=== PATIENT | female | born 1970 | race Caucasian/White ===

== ENCOUNTER 2018-11-11 15:26 | Observation (INO) | payer OTHER ==
[~2018-11-11] VITALS: Ht 157.5 cm; Wt 92.5 kg
--- NOTE | 2018-11-11 15:43 | ER Report ---
History and Physical Time Seen By MD: 15:39 HPI/ROS CHIEF COMPLAINT: RLQ pain HISTORY OF PRESENT ILLNESS: 48 year old female with history of kidney stones presents with severe RLQ pain that started 6 hours ago. Endorses SOB, N and V with the pain. The pain radiates from RLQ to suprapubically. Has tried treating with Tylenol this AM which helped a little but now pain is worse. 9/10 on pain scale. Symptoms are similar to when she had kidney stones in the past. REVIEW OF SYSTEMS: General: no fever, loss of appetite Respiratory: No cough, no dyspnea, SOB Cardiovascular: No chest pain, no palpitations. Gastrointestinal: vomiting, abdominal pain, suprapubic pain, no flank pain Musculoskeletal: No back pain. Allergies: Coded Allergies: doxycycline (Verified Allergy, Intermediate, HIVES, DIARRHEA, 11/11/18) Home Meds No Active Prescriptions or Reported Meds Past Medical/Surgical History Kidney stones, D&C age 18 Reviewed Nurses Notes: Yes Constitutional Vital Sign - Last 24 Hours 11/11/18 11/11/18 11/11/18 11/11/18 15:37 15:41 15:56 16:00 Temp 98.4 Pulse 80 80 81 Resp 16 B/P (MAP) 189/106 181/104 (129) Pulse Ox 92 92 94 11/11/18 11/11/18 11/11/18 11/11/18 16:11 16:26 16:30 17:00 Pulse 82 82 B/P (MAP) 178/109 (132) 178/108 (131) Pulse Ox 92 89 11/11/18 11/11/18 11/11/18 11/11/18 17:11 17:16 17:31 19:01 Pulse 82 83 89 89 Pulse Ox 92 94 93 92 11/11/18 11/11/18 11/11/18 11/11/18 19:06 19:21 19:28 19:36 Pulse 81 84 76 Pulse Ox 88 85 94 O2 Flow Rate 2.5 11/11/18 11/11/18 19:51 20:06 Pulse 86 79 Pulse Ox 94 94 Physical Exam General Appearance: The patient is alert, has no immediate need for airway protection and no current signs of toxicity. no acute distress Eyes: Pupils equal and round no injection. Respiratory: Chest is non tender, lungs are clear to auscultation. Cardiac: regular rate and rhythm Gastrointestinal: Abdomen is soft, RLQ tenderness, positive rebound tenderness on right with palpation of LLQ, no masses, bowel sounds normal. Neck: Neck is supple and non tender. Extremities have full range of motion and are non tender. Skin: No rashes or lesions. DIFFERENTIAL DIAGNOSIS: After history and physical exam differential diagnosis was considered for Kidney stone, UTI, Pyelonephritis, Appendicitis, ovarian cyst Medical Decision Making Data Points Result Diagram: 11/11/18 1539 11/11/18 1539 Laboratory Hematology Test 11/11/18 15:39 White Blood Count 12.0 k/uL (4.5-11.0) H Red Blood Count 4.99 M/uL (4.17-5.56) Hemoglobin 15.1 g/dL (12.0-16.0) Hematocrit 45.0 % (34.0-47.0) Mean Corpuscular Volume 90.3 fL (80.0-96.0) Mean Corpuscular Hemoglobin 30.2 pg (26.0-33.0) Mean Corpuscular Hemoglobin Concent 33.4 g/dL (32.0-36.0) Red Cell Distribution Width 13.7 % (11.5-14.5) Platelet Count 338 K/uL (150-450) Mean Platelet Volume 7.4 fL (7.2-11.1) Neutrophils (%) (Auto) 89.5 % (39.4-72.5) H Lymphocytes (%) (Auto) 6.2 % (17.6-49.6) L Monocytes (%) (Auto) 3.7 % (4.1-12.4) L Eosinophils (%) (Auto) 0.2 % (0.4-6.7) L Basophils (%) (Auto) 0.4 % (0.3-1.4) Nucleated RBC Relative Count (auto) 0.0 /100WBC Neutrophils # (Auto) 10.8 K/uL (2.0-7.4) H Lymphocytes # (Auto) 0.8 K/uL (1.3-3.6) L Monocytes # (Auto) 0.4 K/uL (0.3-1.0) Eosinophils # (Auto) 0.0 K/uL (0.0-0.5) Basophils # (Auto) 0.0 K/uL (0.0-0.1) Nucleated RBC Absolute Count (auto) 0.00 K/uL Erythrocyte Sedimentation Rate 30 mm/HOUR (0-20) H Chemistry Test 11/11/18 15:39 Sodium Level 138 mmol/L (137-145) Potassium Level 3.9 mmol/L (3.5-5.0) Chloride Level 103 mmol/L (98-107) Carbon Dioxide Level 24 mmol/L (22-31) Blood Urea Nitrogen 14 mg/dl (7-18) Creatinine 0.90 mg/dl (0.52-1.04) Glomerular Filtration Rate Calc > 60.0 Random Glucose 127 mg/dl (75-110) Calcium Level 9.3 mg/dl (8.4-10.2) Total Bilirubin 0.5 mg/dl (0.2-1.3) Aspartate Amino Transf (AST/SGOT) 21 U/L (0-35) Alanine Aminotransferase (ALT/SGPT) 33 U/L (0-56) Alkaline Phosphatase 88 U/L (0-126) C-Reactive Protein 0.9 mg/dl (<1.0) Total Protein 8.2 g/dl (6.3-8.2) Albumin 4.4 g/dl (3.5-5.0) Urinalysis Test 11/11/18 13:28 Urine Color Yellow Urine Clarity Slightly-cloudy Urine pH 5.0 pH (4.8-9.5) Urine Specific Beryl 1.024 Urine Protein Negative mg/dL (NEGATIVE) Urine Glucose (UA) Negative mg/dL (NEGATIVE) Urine Ketones Trace mg/dL (NEGATIVE) Urine Blood Moderate (NEGATIVE) Urine Nitrite Negative (NEGATIVE) Urine Bilirubin Negative (NEGATIVE) Urine Urobilinogen Negative mg/dL (0.2-1.9) Urine Leukocyte Esterase Negative (NEGATIVE) Urine RBC 4 /HPF (0-2/HPF) Urine WBC 1 /HPF (0-5/HPF) Urine Squamous Epithelial Cells Many /LPF (</=FEW) Urine Bacteria Few /HPF (NONE-FEW) Urine Mucus Few /HPF (NONE-FEW) EKG/Imaging Imaging TRANSVAGINAL NON-OB HISTORY: dialated tubular structure on CT scan. EXAMINATION: Transabdominal and transvaginal pelvic ultrasound with duplex Doppler evaluation. COMPARISON: CT scan from same day FINDINGS: Uterus: 9.3 x 4.7 x 6.8 cm mass Myometrium: negative Endometrium: 10.4 mm. Homogenous attenuation. No abnormal fluid or mass lesion Cervix: negative Ovaries: Left ovary was not definitively seen. There are multiple cystic structures in the left adnexa having a total size of 7.2 x 3.6 x 5.5 cm. Is correlated with the CT scan that demonstrated multiple septated left adnexa approximately 4 separate cysts the largest measuring approximately 5 cm. Right adnexa demonstrates a complex mass measuring 10.2 x 7.0 x 9.4 cm with elements of calcification and fat corresponding to the CT scan examination of the previously described dermoid. Contiguous to this dermoid is a tubular appearing structure measuring over 9 cm in length and up to 3 cm in width. Blood flow is documented in each ovary by duplex Doppler ultrasound. Adnexa: negative Free pelvic fluid: none IMPRESSION: 1. Right adnexal mass similar in size and appearance to the CT described mass consistent with a dermoid. 2. Tubular structure paralleling the right adnexal dermoid anteriorly likely representing hydrosalpinx. 3. Cyst laden left ovary with multiple cysts largest measuring approximately 5 cm. This correlates with the CT scan. Report Dictated By: Sterling Sampson MD at 11/11/2018 8:42 PM Report E-Signed By: Sterling Sampson MD at 11/11/2018 9:04 PM ADDENDUM #1 ADDENDUM: Also in the impression: Left adrenal gland nodule. ACR recommendations for incidental adrenal nodule with benign features (homogeneous, low density, smooth margins)without definite CT/MRI features of adenoma or other benign lesion: Adrenal nodule 1-4 cm: -Prior imaging available = Obtain prior CT or MRI and issue addendum. If stable for greater than 1 year indicates a benign nodule. If enlarging, recommend biopsy or resection. -No prior imaging and no history of malignancy = Obtain follow up non-contrast CT (adrenal mass protocol) in 1 year. In stable, presume benign. -History of malignancy = Non contrast MRI or non-contrast CT (adrenal mass protocol). If greater than 10 HU, proceed to CT without and with contrast (adrenal washout CT). If still not an adenoma proceed to biopsy. Adrenal nodule >4 cm -No history of malignancy: Consider resection -History of malignancy: PET/CT or biopsy Report Dictated By: Royce Palafox at 11/11/2018 5:57 PM Report E-Signed By: Royce Palafox at 11/11/2018 5:[address] abdomen and pelvis with IV contrast Indication: Right lower abdominal pain. Comparison: None available. . Technique: Axial CT images were obtained through the abdomen and pelvis during injection of nonionic iodinated intravenous contrast. Reformatted coronal and sagittal images were also obtained. One of the following dose optimization techniques was utilized in the performance of this exam: Automated exposure control; adjustment of the mA and/or kV according to the patient's size; or use of an iterative reconstruction technique. Specific details can be referenced in the facility's radiology CT exam operational policy. Contrast: 75 ml of Isovue-370 IV contrast. Findings: Lower lung munoz: Limited views lower lung field are unremarkable. Liver: No focal parenchymal abnormality of the liver. Biliary: Gallbladder appears unremarkable as well as the intra and extra hepatic biliary system. Pancreas: Normal appearance. Spleen: Normal appearance. Adrenal glands: Left adrenal gland does show a 2.1 x 1.9 cm hypodense nodule with Hounsfield of 63. Right adrenal gland is normal. Kidneys / retroperitoneum: No evidence of nephrolithiasis or hydronephrosis. No focal abnormality. Bowel / peritoneum / mesenteries: Colon shows no focal abnormality. The appendix is not definitely visualized. Right lower quadrant does show mild inflammatory changes. Small bowel shows no focal abnormality or obstruction. Stomach shows a small hiatal hernia and otherwise unremarkable. No free air, free fluid, fluid collections or other areas of inflammation. Small moderate umbilical hernia present containing fat. Lymph node assessment: No pathologic adenopathy identified. Pelvic structures: The right adnexal/ovary does show a 9.9 x 7.1 x 9.0 cm fat-containing lesion with some mild soft tissue calcification consistent with a dermoid. The region just anterior to the dermoid does show a dilated serpiginous tubular type structure measuring 9.0 x 3.0 x 6.0 cm. No appreciable inflammatory changes are present. However this does extend mildly to the right lower quadrant where there is mild inflammatory changes. The left ovary does show cysts with largest measuring 4.8 x 4.9 x 4.7 cm. The remaining pelvic structures visualized within normal limits. Vessels: No significant atherosclerotic calcifications seen throughout a nonaneurysmal abdominal aorta and branches. Musculoskeletal / Body wall: No acute or aggressive osseous abnormality. Mild degenerative changes of spine. IMPRESSION 1. There is mild inflammatory changes in right lower quadrant. The appendix is not definitely visualized. However near this area is a serpiginous tubular dilated structure measuring least 9 cm. Unsure if this is due to a signi ficantly dilated appendix versus a tubo-ovarian process such as hydrosalpinx or early tubo-ovarian abscess. 2. Right dermoid measuring 9.9 cm. 3. Left ovarian cysts with largest measuring 4.9 cm. 4. Other chronic findings as above. I called report to ESTEFANIA COHEN at 11/11/2018 5:47 PM. Report Dictated By: Royce Palafox at 11/11/2018 5:32 PM Report E-Signed By: Royce Palafox at 11/11/2018 5:49 PM ED Course/Re-evaluation ED Course Patient was admitted and examined, history and physical were obtained. Differential diagnoses were considered. On examination lungs are clear, heart regular, abdomen was soft and tender. Patient had generalized peritonitis with pain being worse in the right lower quadrant. An IV started, CBC, CMP, urinalysis were obtained. CT scan of abdomen and pelvis was done. It did show a large tubular mass in the lower pelvis. They're unsure if it was associated with the appendix, or with the reproductive organs. A transvaginal ultrasound was done. It did show multiple masses in that region. It appears to be associated with the reproductive organs. I discussed the case with Dr. Garner, NUM[employer]ICAL CONTR[employer] OPERATOR, who came down and evaluated the patient. She did agree to admit the patient with diagnosis of pelvic pain and pelvic mass. She will watch her overnight, with hopes will be able to get her pain under control so that she can follow-up with gynecology oncology in [place] where she is from. Patient verbalized understanding and agreement. Decision to Disposition Date: Nov 11, 2018 Decision to Disposition Time: 22:18 Depart Departure Latest Vital Signs Vital Signs Date Time Temp Pulse Resp B/P (MAP) Pulse Ox O2 Delivery O2 Flow Rate FiO2 11/11/18 20:06 79 94 11/11/18 19:28 2.5 11/11/18 17:00 178/108 (131) 11/11/18 15:37 98.4 16 Impression: Primary Impression: Pelvic pain Additional Impression: Pelvic mass Condition: Condition Unchanged Disposition: Admitted from ER New Scripts No Active Prescriptions or Reported Meds Problem Qualifiers ESTEFANIA COHEN Nov 11, 2018 15:43
[2018-11-11] MEDS ORDERED: NS(*) 0.9% 1000 ML BAG 1,000 ML IV ONE (15:58)
[2018-11-11] MEDS ORDERED: KETOROLAC 30 MG/ML VIAL IVP ONE ×2 (16:00→22:05)
[2018-11-11] MEDS ORDERED: ONDANSETRON 4 MG/2 ML VIAL IVP ONE (16:05)
[2018-11-11] MEDS ORDERED: IOPAMIDOL 76% 100 ML INFUS BTL 100 ML ONE ×2 (16:15→16:57)
[2018-11-11 16:25] LABS: PLATELET COUNT, AUTOMATED 338 K/uL (150-450)
[2018-11-11] MEDS ORDERED: ACETAMINOPHEN(*)1000 MG/100 ML 100 ML IVPB ONE (17:05)
--- NOTE | 2018-11-11 17:56 | RADIOLOGY IMAGING REPORT ---
FACILITY: [facility] - [place] PATIENT NAME: Zonia Mclain : 1970 MR: [id number] V: [id number] EXAM DATE: ORDERING PHYSICIAN: ESTEFANIA COHEN TECHNOLOGIST: Location: [facility] - [place] Patient: Zonia Mclain : 1970 Visit/Account:[id number] Date of Sevice: 11/11/2018 ADDENDUM #1 ADDENDUM: Also in the impression: Left adrenal gland nodule. ACR recommendations for incidental adrenal nodule with benign features (homogeneous, low density, smooth margins)without definite CT/MRI features of ad enoma or other benign lesion: Adrenal nodule 1-4 cm: -Prior imaging available = Obtain prior CT or MRI and issue addendum. If stable for greater than 1 ye ar indicates a benign nodule. If enlarging, recommend biopsy or resection. -No prior imaging and no history of malignancy = Obtain follow up non-contrast CT (adrenal mass yulia col) in 1 year. In stable, presume benign. -History of malignancy = Non contrast MRI or non-contrast CT (adrenal mass protocol). If greater than 10 HU, proceed to CT without and with contrast (adrenal washout CT). If still not an adenoma proceed to biopsy. Adrenal nodule >4 cm -No history of malignancy: Consider resection -History of malignancy: PET/CT or biopsy Report Dictated By: Royce Palafox at 11/11/2018 5:57 PM Report E-Signed By: Royce Palafox at 11/11/2018 5:[address] abdomen and pelvis with IV contrast Indication: Right lower abdominal pain. Comparison: None available. . Technique: Axial CT images were obtained through the abdomen and pelvis during injection of nonioni c iodinated intravenous contrast. Reformatted coronal and sagittal images were also obtained. One of the following dose optimization techniques was utilized in the performance of this exam: Autom ated exposure control; adjustment of the mA and/or kV according to the patient's size; or use of an i terative reconstruction technique. Specific details can be referenced in the facility's radiology C T exam operational policy. Contrast: 75 ml of Isovue-370 IV contrast. Findings: Lower lung munoz: Limited views lower lung field are unremarkable. Liver: No focal parenchymal abnormality of the liver. Biliary: Gallbladder appears unremarkable as well as the intra and extra hepatic biliary system. Pancreas: Normal appearance. Spleen: Normal appearance. Adrenal glands: Left adrenal gland does show a 2.1 x 1.9 cm hypodense nodule with Hounsfield of 63. R ight adrenal gland is normal. Kidneys / retroperitoneum: No evidence of nephrolithiasis or hydronephrosis. No focal abnormality. Bowel / peritoneum / mesenteries: Colon shows no focal abnormality. The appendix is not definitely vi sualized. Right lower quadrant does show mild inflammatory changes. Small bowel shows no focal abnorm ality or obstruction. Stomach shows a small hiatal hernia and otherwise unremarkable. No free air, free fluid, fluid collections or other areas of inflammation. Small moderate umbilical h ernia present containing fat. Lymph node assessment: No pathologic adenopathy identified. Pelvic structures: The right adnexal/ovary does show a 9.9 x 7.1 x 9.0 cm fat-containing lesion wi th some mild soft tissue calcification consistent with a dermoid. The region just anterior to the roly moid does show a dilated serpiginous tubular type structure measuring 9.0 x 3.0 x 6.0 cm. No apprecia ble inflammatory changes are present. However this does extend mildly to the right lower quadrant whe re there is mild inflammatory changes. The left ovary does show cysts with largest measuring 4.8 x 4. 9 x 4.7 cm. The remaining pelvic structures visualized within normal limits. Vessels: No significant atherosclerotic calcifications seen throughout a nonaneurysmal abdominal aort a and branches. Musculoskeletal / Body wall: No acute or aggressive osseous abnormality. Mild degenerative changes of spine. IMPRESSION 1. There is mild inflammatory changes in right lower quadrant. The appendix is not definit ioana visualized. However near this area is a serpiginous tubular dilated structure measuring least 9 c m. Unsure if this is due to a significantly dilated appendix versus a tubo-ovarian process such as hy drosalpinx or early tubo-ovarian abscess. 2. Right dermoid measuring 9.9 cm. 3. Left ovarian cysts with largest measuring 4.9 cm. 4. Other chronic findings as above. I called report to ESTEFANIA COHEN at 11/11/2018 5:47 PM. Report Dictated By: Royce Palafox at 11/11/2018 5:32 PM Report E-Signed By: Royce Palafox at 11/11/2018 5:49 PM WSN:[id number]
[2018-11-11] MEDS ORDERED: MORPHINE 4 MG/ML SDV IVP ONE (18:05)
--- NOTE | 2018-11-11 21:12 | RADIOLOGY IMAGING REPORT ---
FACILITY: [facility] - [place] PATIENT NAME: Zonia Mclain : 1970 MR: [id number] V: [id number] EXAM DATE: ORDERING PHYSICIAN: ESTEFANIA COHEN TECHNOLOGIST: Location: [facility] - [place] Patient: Zonia Mclain : 1970 Visit/Account:[id number] Date of Sevice: 11/11/2018 TRANSVAGINAL NON-OB HISTORY: dialated tubular structure on CT scan. EXAMINATION: Transabdominal and transvaginal pelvic ultrasound with duplex Doppler evaluation. COMPARISON: CT scan from same day FINDINGS: Uterus: 9.3 x 4.7 x 6.8 cm mass Myometrium: negative Endometrium: 10.4 mm. Homogenous attenuation. No abnormal fluid or mass lesion Cervix: negative Ovaries: Left ovary was not definitively seen. There are multiple cystic structures in the left adnex a having a total size of 7.2 x 3.6 x 5.5 cm. Is correlated with the CT scan that demonstrated multipl e septated left adnexa approximately 4 separate cysts the largest measuring approximately 5 cm. Right adnexa demonstrates a complex mass measuring 10.2 x 7.0 x 9.4 cm with elements of calcification and fat corresponding to the CT scan examination of the previously described dermoid. Contiguous to this dermoid is a tubular appearing structure measuring over 9 cm in length and up to 3 cm in width. Blood flow is documented in each ovary by duplex Doppler ultrasound. Adnexa: negative Free pelvic fluid: none IMPRESSION: 1. Right adnexal mass similar in size and appearance to the CT described mass consistent with a dermo id. 2. Tubular structure paralleling the right adnexal dermoid anteriorly likely representing hydrosalpin x. 3. Cyst laden left ovary with multiple cysts largest measuring approximately 5 cm. This correlates wi th the CT scan. Report Dictated By: Sterling Sampson MD at 11/11/2018 8:42 PM Report E-Signed By: Sterling Sampson MD at 11/11/2018 9:04 PM WSN:[id number]
--- NOTE | 2018-11-11 22:41 | History & Physical ---
History of Present Illness Chief Complaint Right pelvic pain, nausea and vomiting History of Present Illness 48-year-old presented to the emergency department with acute onset RLQ pain, nausea and vomiting. The pain started this morning as a constant sharp pain. It was then coming with waves of increasing severity. She then developed severe enough pain that she was having some nausea and vomiting. She is not having any vaginal bleeding. She initially presented because she assumed it was kidney stones. She had this same pain two years ago and was diagnosed with kidney stones in [place]. She denies any family history of cancer but admits she does not know much about her family. 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 She is in the ED bed with her dog. She is very concerned as she is adamant she needs to be back on the road by tomorrow morning. She does not have any family except one cousin in [place] that would be able to help her. History Obstetrical History: POB Hx: G1: Full term >30 years ago G2: SAB with D&C PGYN Hx: She had her last normal menses in 04/2018. She then had 8 hours of bleeding 2 months ago. Past Medical History: PMH: None PSH: D&C, right pinky laceration repair Allergies: Coded Allergies: doxycycline (Verified Allergy, Intermediate, HIVES, DIARRHEA, 11/11/18) Social History: She smokes 1/2 ppd (restarted 2 months ago after quiting for one year). She quit ETOH in 1997. She denies any illicit or pharmaceutical drugs. Med Rec Home Meds No Active Prescriptions or Reported Meds Review of Systems Constitutional: Chills; No Fever Neurological: No Syncope Eyes: No Vision Change Cardiovascular: No Chest Pain, No Palpitations Respiratory: Shortness of Breath; No Cough, No Wheezing Gastrointestinal: Nausea, Vomiting, Diarrhea Musculoskeletal: No Pain Psychiatric: No Depression, No Anxiety Exam General Exam Vital Signs Vital Signs Date Time Temp Pulse Resp B/P (MAP) Pulse Ox O2 Delivery O2 Flow Rate FiO2 11/11/18 20:06 79 94 11/11/18 19:28 2.5 11/11/18 17:00 178/108 (131) 11/11/18 15:37 98.4 16 General Apperance: Alert/Awake/No Acute Distress, Other (Appears obese) Neuro: No Gross deficits Eyes: Normal Extraocular Movement & Vison Cardiovascular: Regular Rate and Rhythm Respiratory: No Respiratory Distress, Clear to Auscultation Abdomen: Other (Round, tenderness throughout but worse in RLQ, she has very minimal rebound, no guarding; she is pushing on her RLQ during the discussion to make it feel better) Extremities: No Cyanosis,Clubbing or Edema Integumentary: Skin Intact without Lesions or Rash Psychological: Alert & Oriented X3, Appropriate Mood & Affect Medical Decision Making Data Points Result Diagram: 11/11/18 1539 11/11/18 1539 Imaging Ultrasound/Imaging PATIENT NAME: Zonia Mclain : 1970 MR: [id number] V: [id number] EXAM DATE: ORDERING PHYSICIAN: ESTEFANIA COHEN TECHNOLOGIST: Location: [facility] [place] Patient: Zonia Mclain : 1970 Visit/Account:[id number] Date of Sevice: 11/11/2018 TRANSVAGINAL NON-OB HISTORY: dialated tubular structure on CT scan. EXAMINATION: Transabdominal and transvaginal pelvic ultrasound with duplex Doppler evaluation. COMPARISON: CT scan from same day FINDINGS: Uterus: 9.3 x 4.7 x 6.8 cm mass Myometrium: negative Endometrium: 10.4 mm. Homogenous attenuation. No abnormal fluid or mass lesion Cervix: negative Ovaries: Left ovary was not definitively seen. There are multiple cystic structures in the left adnexa having a total size of 7.2 x 3.6 x 5.5 cm. Is correlated with the CT scan that demonstrated multiple septated left adnexa approximately 4 separate cysts the largest measuring approximately 5 cm. Right adnexa demonstrates a complex mass measuring 10.2 x 7.0 x 9.4 cm with elements of calcification and fat corresponding to the CT scan examination of the previously described dermoid. Contiguous to this dermoid is a tubular appearing structure measuring over 9 cm in length and up to 3 cm in width. Blood flow is documented in each ovary by duplex Doppler ultrasound. Adnexa: negative Free pelvic fluid: none IMPRESSION: 1. Right adnexal mass similar in size and appearance to the CT described mass consistent with a dermoid. 2. Tubular structure paralleling the right adnexal dermoid anteriorly likely representing hydrosalpinx. 3. Cyst laden left ovary with multiple cysts largest measuring approximately 5 cm. This correlates with the CT scan. Report Dictated By: Sterling Sampson MD at 11/11/2018 8:42 PM Report E-Signed By: Sterling Sampson MD at 11/11/2018 9:04 PM Assessment and Plan Problems: (1) Pelvic pain Status: Acute Assessment & Plan: 48-year-old presented to the emergency department with acute onset RLQ pain, nausea and vomiting. A CT scan revealed right adnexal masses. She then had an ultrasound with concerns for three separate large cystic masses within the pelvis. Please see ultrasound report. She does not have any free fluid or lymphadenopathy. However, given her age a CA125 was drawn. I have suggested she may require surgery; this may also represent an acute ovarian torsion. 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 She also doesn't have anyone to help with her dog. We discussed the following options: 1) Transfer to tertiary care center in [place] for further evaluation and management with likely surgery 2) Admit to the floor for pain control to see if she can get enough control without narcotics to get back on the road and finish her evaluation and management in [place]. 3) Attempt surgery in [place] with the possibility of it being an open abdominal procedure and if it is malignant she may need a future surgery with [facility]. She would like to try conservative management to see if she feels well enough tomorrow to drive. Will admit with the following orders: -CA125 now and CBC in AM -Toradol Q6hr, Tylenol Q8hr, Morphine [facility]YS[facility] -Zofran prn -NPO, IVF with D5NS -SCDs (2) Pelvic mass Status: Acute Assessment & Plan: Multiple cystic structures in bilateral adnexa. CA125 drawn tonight. If she requires surgery it would be best with [facility] but if she truly becomes emergent, we may need to attempt here in [place]. The patient is aware of the limitations here and refuses to transfer to another center at this time. KAJAL ROSSI MD Nov 11, 2018 22:41
[2018-11-11 23:00] VITALS: BP 133/92
[2018-11-11] MEDS ORDERED: MORPHINE 50 MG/50 ML PCA BAG IV PRN (23:45)
[2018-11-11] MEDS ORDERED: ONDANSETRON 4 MG/2 ML VIAL IVP PRN (23:45)
[2018-11-11] MEDS ORDERED: D5NS(*) 1000 ML BAG 1,000 ML IV SCH (23:45)
[2018-11-12] MEDS ORDERED: ONDANSETRON 4 MG ODT TABDP SL SCH
[2018-11-12] MEDS ORDERED: ACETAMINOPHEN(*)1000 MG/100 ML 100 ML IVPB PRN
[2018-11-12 02:38] VITALS: BP 107/69
[2018-11-12] MEDS ORDERED: KETOROLAC 30 MG/ML VIAL IVP SCH ×2 (04:00→10:00)
[2018-11-12 05:05] VITALS: BP 112/75
[2018-11-12] MEDS ORDERED: ACETAMINOPHEN 500 MG TAB PO PRN (07:15)
[2018-11-12] MEDS ORDERED: IBUPROFEN 800 MG TAB PO PRN (07:15)
[2018-11-12] MEDS ORDERED: ONDANSETRON 4 MG ODT TABDP SL PRN ×2 (07:15→12:00)
--- NOTE | 2018-11-12 09:12 | OB/GYN Progress Note ---
OB Subjective Progress Notes Subjective Pt is feeling much better. She has not used any narcotic pain medication since 1899 yesterday. She is using Toradol and Tylenol. Zofran is helping also. She is able to ambulate and wants to try to eat. 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 OB Objective Physical Exam Vital Signs Date Time Temp Pulse Resp B/P (MAP) Pulse Ox O2 Delivery O2 Flow Rate FiO2 11/12/18 07:10 71 96 Nasal Cannula 0.5 11/12/18 05:05 98.5 12 112/75 (87) Intake and Output 11/12/18 07:03 Intake Total 1690 ml Output Total 300 ml Balance 1390 ml Intake IV Total 1690 ml Output Urine Total 300 ml # Voids 1 General Appearance: Alert/Awake/No Acute Distress, Other (Appears obese) Neurological: No Gross deficits Eyes: Normal Extraocular Movement & Vison Respiratory: No Respiratory Distress, Clear to Auscultation Extremities: No Cyanosis,Clubbing or Edema Integumentary: Skin Intact without Lesions or Rash Psychological: Alert & Oriented X3, Appropriate Mood & Affect Result Diagram: 11/12/18 0655 11/11/18 1539 Assessment and Plan Problems: (1) Pelvic pain Status: Acute Assessment & Plan: Patient is much improved today without narcotics. She will be discharged to drive home. She has been given strict precautions to stop along the way if needed. She will be given copies of her images, reports and contact information for [facility] at [facility]. She has a CA125 that is pending and I will call her with those results once available. She will use Tylenol/Ibuprofen for pain and may still use Zofran while driving. I have completed her forms to return to work. She agrees to contact [facility] and/or gynecology on Wednesday to have this evaluated. She understands she is likely going to need surgery. She understands this may be a malignancy, however, there are no obvious signs of free fluid or lymphadenopathy. All of her questions were addressed. Will discharge. From 11/11/18: 48-year-old presented to the emergency department with acute onset RLQ pain, nausea and vomiting. A CT scan revealed right adnexal masses. She then had an ultrasound with concerns for three separate large cystic masses within the pelvis. Please see ultrasound report. She does not have any free fluid or lymphadenopathy. However, given her age a CA125 was drawn. I have suggested she may require surgery; this may also represent an acute ovarian torsion. 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 She also doesn't have anyone to help with her dog. We discussed the following options: 1) Transfer to tertiary care center in [place] for further evaluation and management with likely surgery 2) Admit to the floor for pain control to see if she can get enough control without narcotics to get back on the road and finish her evaluation and management in [place]. 3) Attempt surgery in [place] with the possibility of it being an open abdominal procedure and if it is malignant she may need a future surgery with [facility]. She would like to try conservative management to see if she feels well enough tomorrow to drive. Will admit with the following orders: -CA125 now and CBC in AM -Toradol Q6hr, Tylenol Q8hr, Morphine PINMAKER -Zofran prn -NPO, IVF with D5NS -SCDs (2) Pelvic mass Status: Acute Assessment & Plan: As above. KAJAL ROSSI MD Nov 12, 2018 09:11
[2018-11-12 09:42] VITALS: BP 119/78
[2018-11-12] MEDS ORDERED: ACET-2146 PO (10:03)
[2018-11-12] MEDS ORDERED: IBUP800T37 PO (10:04)
[2018-11-12] MEDS ORDERED: ONDA4TAB9 PO (10:05)
[2018-11-12 10:25] VITALS: Ht 157.5 cm; Wt 92.5 kg
--- NOTE | 2018-11-15 09:07 | OB/GYN Progress Note ---
OB Subjective Progress Notes Subjective This note is placed after patient was discharged. OB Objective Physical Exam Vital Signs Date Time Temp Pulse Resp B/P (MAP) Pulse Ox O2 Delivery O2 Flow Rate FiO2 11/12/18 10:30 95 Room Air 11/12/18 09:42 99.1 76 16 119/78 (92) 11/12/18 07:10 0.5 General Appearance: Alert/Awake/No Acute Distress, Other (Appears obese) Neurological: No Gross deficits Eyes: Normal Extraocular Movement & Vison Respiratory: No Respiratory Distress, Clear to Auscultation Extremities: No Cyanosis,Clubbing or Edema Integumentary: Skin Intact without Lesions or Rash Psychological: Alert & Oriented X3, Appropriate Mood & Affect Result Diagram: 11/12/18 0655 11/11/18 1539 Assessment and Plan Problems: (1) Pelvic mass Status: Acute Assessment & Plan: I called the patient after discharge this morning. She made it home to [place] safely. She is still having pain, but it is tolerable with ibuprofen and Tylenol. Her CA-25 is 16. She was given this information over the phone. She has established an appointment with a [facility] oncologist on and . All of her questions were addressed. (2) Pelvic pain Status: Acute KAJAL ROSSI MD Nov 15, 2018 09:07
== END 2018-11-12 09:19 | disposition home or self-care (01) ==
LOC: ER 15:45 → INTOOBSV 22:28 → PED 22:28
PROVIDERS: ADMIT Obstetrics & Gynecology; ATTEND Obstetrics & Gynecology
DX: R19.00 Intra-abdominal and pelvic swelling, mass and lump, unspecified site (principal)
CPT/HCPCS: 36415; 74177; 76830; 81001; 85025; 85027; 85651; 86140; 86304; 96361; 96365; 96375; 96376; 99284; G0378; J0131; J1885; J2270; J2405; J7030; J7042; Q9967; S0119; 82040; 82247; 82310; 82374; 82435; 82565; 82947; 84075; 84132; 84155; 84295; 84450; 84460; 84520